=== PATIENT | female | born 1990 | race Hispanic/Latino ===

== ENCOUNTER 2018-04-30 12:36 | Outpatient (CLI) | payer OTHER ==
--- NOTE | 2018-04-30 15:23 | MRI ---
MRI LUMBAR SPINE: HISTORY: Back pain radiating down right leg. FINDINGS: Multiplanar, multisequence noncontrast-enhanced MRI images of the lumbar spine obtained. The vertebral bodies were unremarkable. The disks are unremarkable. The neural foramen are patent. No evidence of spinal stenosis or neural foraminal narrowing is seen. IMPRESSION: Normal MRI of the lumbar spine with no evidence of acute or chronic bony abnormality seen. Disk spac es and soft tissues unremarkable. POS: NATHANIEL
== END 2018-04-30 12:37 | disposition home or self-care (01) ==
LOC: TBSIIMAG 12:36
PROVIDERS: ATTEND Neurological Surgery
DX: M54.16 Radiculopathy, lumbar region (principal)
CPT/HCPCS: 72148

== ENCOUNTER 2018-11-21 15:27 | Outpatient (CLI) | payer OTHER ==
--- NOTE | 2018-11-21 16:49 | MRI ---
MRI OF THE RIGHT HIP WITHOUT CONTRAST: 11/21/18 INDICATION: History of right hip pain following epidural in 2014 with pain extending down the right aspect of the hip and up into her back. COMPARISON: MR of the lumbar spine dated 05/10/18 and a lumbar spinal radiograph dated 03/03/18. 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 No acute fracture is evident. The bone marrow signal i ntensity appears within normal limits. No joint effusion is evident. There is mild tendinosis of the right gluteus minimus and medius tendon with mild subgluteus minimus and medius trochanteric bursa fl uid. No iliopsoas bursitis is evident. No muscular atrophy is demonstrated. The visualized right scia tic nerve is normal appearing. The visualized intrapelvic contents reveal no definite acute abnormali ty. No enlarged lymph nodes are evident. The right hamstring origins and right rectus femoris origin is normal appearing. No definite paralabral cyst is evident. IMPRESSION: 1. Mild right gluteus minimus and medius tendinosis with mild trochanteric bursitis. POS: [facility]
== END 2018-11-21 15:28 | disposition home or self-care (01) ==
LOC: TBSIIMAG 15:27
PROVIDERS: ATTEND Neurological Surgery
DX: M25.551 Pain in right hip (principal); M70.61 Trochanteric bursitis, right hip

== ENCOUNTER 2020-01-28 07:35 | Outpatient (CLI) | payer OTHER ==
[2020-01-28 14:35] LABS: BHCG - Serum Negative (NEGATIVE); Pregs Control Background? CLEAR/WHITE (CLR/WHITE); Pregs Control Bar Appear? YES (CONTROL BAR)
[2020-01-28 14:37] LABS: #Eosinphils 0.3 thou/uL (0.0-0.7); #Lymphocytes 2.8 thou/uL (1.20-3.40); #Monocytes 0.5 thou/uL (0.11-0.59); #Neutrophils 6.3 thou/uL (1.40-6.50); %Basophils 0.4 % (0.0-1.0); %Eosinophils 3.1 % (0.0-10.0); %Lymphocytes 28.5 % (21.0-51.0); %Monocytes 4.8 % (0.0-10.0); %Neutrophils 63.2 % (42.0-75.0); Hemoglobin 12.7 g/dL (12.0-16.0); Mean Corpuscular HGB CONC 31.9 g/dL (32.0-36.0); Mean Corpuscular Hemoglobin 25.6 pg (27.0-31.0); Mean Corpuscular Volume 80.2 fL (78.0-98.0); Mean Platelet Volume 9.4 fL (7.4-10.4); Platelet Count 283 thou/uL (130-400); RBC Distribution Width 15.4 % (11.5-14.5); Red Blood Cell (RBC) Count 4.96 mill/uL (4.20-5.40); White Blood Cell (WBC) Count 9.9 thou/uL (4.8-10.8)
[2020-01-28 14:53] LABS: ALT (SGPT) 16 U/L (8-55); AST (SGOT) 17 U/L (5-34); Albumin 4.5 g/dL (3.5-5.0); Alkaline Phosphatase 119 U/L (40-110); Anion Gap 13 mmol/L (10-20); BUN (Urea Nitrogen) 8 mg/dL (7.0-18.7); Bilirubin, Total 0.3 mg/dL (0.2-1.2); Calc. Creatinine Clearance 0 mL/min (70-130); Calcium 9.8 mg/dL (7.8-10.44); Carbon Dioxide 26 mmol/L (22-29); Chloride 103 mmol/L (98-107); Estimated GFR-MDRD Greater than 90; Globulin 3.6 g/dL (2.4-3.5); Glucose 95 mg/dL (70-105); Potassium 4.3 mmol/L (3.5-5.1); Protein, Total 8.1 g/dL (6.0-8.3); Sodium 138 mmol/L (136-145)
[2020-01-29 19:01] LABS: SARS-CoV-2 MS2 Positive; SARS-CoV-2 N Gene Negative; SARS-CoV-2 S Gene Negative; SARS-CoV-2 by NAA Not Detected (NotDetected); SARS-CoV-2 orf1ab Negative
== END 2020-01-28 07:36 | disposition home or self-care (01) ==
LOC: LABBT 07:35
PROVIDERS: ATTEND Specialist
DX: Z01.812 Encounter for preprocedural laboratory examination (principal); Z11.59 Encounter for screening for other viral diseases; K80.20 Calculus of gallbladder without cholecystitis without obstruction
CPT/HCPCS: 80053; 84703; 85025; 87635; U0003